=== PATIENT | female | born 1935 | race Caucasian/White ===

== ENCOUNTER 2019-05-15 08:10 | Emergency (ER) | payer MEDICARE ==
[2019-05-15 08:10] VITALS: BP 115/79
[2019-05-15] MEDS ORDERED: SODI104S NS (08:37)
--- NOTE | 2019-05-15 08:45 | PHYS DOC ---
Past History Past Medical History: Cancer (breast), Hypertension Additional Past Surgical Histo: "unsure" Smoking: Non-smoker Alcohol Use: None Drug Use: None Adult General Chief Complaint Chief Complaint: NOSE FOREIGN BODY HPI HPI 83-year-old female presents with sensation of metallic sewing needle to right n are. Reports she had a dream that there was a needle in her nose. Reports history of stepping on needle in past and thinks that that needle might have migrated up to her nose. Reports she thinks that she can feel the needle in her nose and "almost had ahold of it". Reports some mild bleeding after patient tried to get the needle this AM. Review of Systems Review of Systems Constitutional: Denies fever or chills Eyes: Denies redness or eye pain HENT: Reports foreign body sensation to right nare, reports some scant epistaxis after digital trauma Respiratory: Denies cough or shortness of breath Cardiovascular: Denies chest pain or palpitations GI: Denies abdominal pain, nausea, or vomiting : Denies dysuria or hematuria Musculoskeletal: Denies back pain or joint pain Integument: Denies rash or skin lesions Neurologic: Denies headache, focal weakness or sensory changes Complete systems were reviewed and found to be within normal limits, except as documented in this note. Allergies Allergies Allergies Coded Allergies Type Severity Reaction Last Updated Verified No Known Drug Allergies 05/15/19 No Physical Exam Physical Exam Constitutional: Well developed, well nourished, no acute distress, non-toxic appearance HENT: Normocephalic, atraumatic, oropharynx moist, nasal cavity without signs of foreign body, nasal septum on left with small eschar, no active bleeding noted, Eyes: Conjunctiva normal, no discharge Neck: Normal range of motion, no tenderness, supple Cardiovascular: Heart rate normal, regular rhythm Lungs & Thorax: Bilateral breath sounds clear to auscultation, no wheezing Skin: Warm, dry, no erythema, no rash Extremities: No tenderness, ROM intact, no edema Neurologic: Alert and oriented X 3, no focal deficits noted Psychologic: Affect normal, judgement normal EKG EKG [] Radiology/Procedures Radiology/Procedures PROCEDURE: NASAL BONES 3+V NASAL BONES 3+V History: Possible metallic needle to the right nare Comparison: None. Findings: 3 views of nasal bones are submitted. No metallic foreign body is identified in the region of the nose. Linear metallic body in the right maxillary region is probably related to dental hardware. Impression: 1. No metallic foreign body is identified in the region of the nose. Electronically signed by: Shahriar Wilkinson MD (05/15/2019 9:03 AM) [facility] Course & Med Decision Making Course & Med Decision Making Pertinent Imaging studies reviewed. (See chart for details) Patient presents with sensation of foreign body to right nose. No foreign body demonstrated. Patient had thought that possible needle she had stepped on several months ago had migrated up to her nose. X-ray confirmed no metallic foreign body. Some nasal irritation appreciated likely secondary to use of supplemental oxygen via nasal cannula. [place] nasal spray prescription provided. Patient stable for discharge with outpatient follow-up with PCP. Discussed findings and plan with patient and family, who acknowledge understanding and agreement. Dragon Disclaimer Dragon Disclaimer This electronic medical record was generated, in whole or in part, using a voice recognition dictation system. Departure Departure: Impression: Primary Impression: Feared condition not demonstrated Disposition: HOME, SELF-CARE Condition: STABLE Referrals: ARMANI MORTENSEN MD (PCP) Additional Instructions: No foreign body was noted in your nasal cavity on physical exam. Additionally, no metallic object was demonstrated on XR of your nasal bones. Some mild irritation to nasal septum noted likely secondary to using supplemental oxygen. Please use nasal rinse to decreased irritation in additional to humidifier. Scripts Sodium Chloride (OCEAN) 104 Ml [place] 2 SPRAYS NS QID for Nasal irritation, #1 BOTTLE Prov: KIMBERLY MUHAMMAD DO 05/15/19 KIMBERLY MUHAMMAD DO May 15, 2019 08:45
--- NOTE | 2019-05-15 09:06 | RAD ---
NASAL BONES 3+V History: Possible metallic needle to the right nare Comparison: None. Findings: 3 views of nasal bones are submitted. No metallic foreign body is identified in the region of the nose. Linear metallic body in the right maxillary region is probably related to dental hardware. Impression: 1. No metallic foreign body is identified in the region of the nose. Electronically signed by: Shahriar Wilkinson MD (05/15/2019 9:03 AM) [facility]
== END 2019-05-15 09:05 | disposition home or self-care (01) ==
LOC: ER 08:10
DX: R04.0 Epistaxis (principal); Z71.1 Person with feared health complaint in whom no diagnosis is made; I10 Essential (primary) hypertension
CPT/HCPCS: 70160; 99284

== ENCOUNTER 2019-09-06 10:37 | Observation (INO) | payer MEDICARE ==
[~2019-09-06] VITALS: Ht 175.3 cm; Wt 95.6 kg
[~2019-09-06 10:37] MED LIST: SODI104S NS
--- NOTE | 2019-09-06 11:28 | PHYS DOC ---
Past History Past Medical History: Cancer, Hypertension Additional Past Medical Histor: pt is a poor historian Past Surgical History: Cancer Surgery, Knee Replacement Additional Past Surgical Histo: "unsure" Smoking: Non-smoker Alcohol Use: None Drug Use: None Adult General Chief Complaint Chief Complaint: HEAD INJURY/TRAUMA HPI HPI 83-year-old female presents after fall at home. The patient was getting a heavy bag out of her closet when she tripped and fell backwards. The patient remembers falling. She then woke up on the floor wondering where she was. She realized that she was at home and that she had been knocked unconscious. No one was the re, so she's not sure how long she was unconscious. The patient is on Coumadin. She states her INRs been stable. She has a dull headache this time. She also has some tailbone pain. She has a previous fracture of her tailbone from years ago. She has no other complaints at this time. Review of Systems Review of Systems Constitutional: Denies fever or chills [] Eyes: Denies change in visual acuity, redness, or eye pain [] HENT: Denies nasal congestion or sore throat [] Respiratory: Denies cough or shortness of breath [] Cardiovascular: No additional information not addressed in HPI [] GI: Denies abdominal pain, nausea, vomiting, bloody stools or diarrhea [] : Denies dysuria or hematuria [] Musculoskeletal: Low back/pelvic pain[] Integument: Denies rash or skin lesions [] Neurologic: Headache. Denies focal weakness or sensory changes [] Endocrine: Denies polyuria or polydipsia [] All other systems were reviewed and found to be within normal limits, except as documented in this note. Allergies Allergies Allergies Coded Allergies Type Severity Reaction Last Updated Verified No Known Drug Allergies 09/06/19 No Physical Exam Physical Exam Constitutional: Well developed, well nourished, no acute distress, non-toxic appearance. [] HENT: Normocephalic, atraumatic, bilateral external ears normal, oropharynx moist, no oral exudates, nose normal. [] Eyes: PERRLA, EOMI, conjunctiva normal, no discharge. [] Neck: Normal range of motion, no tenderness, supple, no stridor. [] Cardiovascular:Heart rate regular rhythm, no murmur [] Lungs & Thorax: Bilateral breath sounds clear to auscultation [] Abdomen: Bowel sounds normal, soft, no tenderness, no masses, no pulsatile masses. [] Skin: Warm, dry, no erythema, no rash. [] Back: Tenderness over the sacral area[] Extremities: No tenderness, no cyanosis, no clubbing, ROM intact, no edema. [] Neurologic: Alert and oriented X 3, normal motor function, normal sensory function, no focal deficits noted. [] Psychologic: Affect normal, judgement normal, mood normal. [] EKG EKG [] Radiology/Procedures Radiology/Procedures [] Impressions: CT HEAD WO CONTRAST History: Fall. Pain. Comparison: None. Technique: Noncontrast CT imaging was performed of the head. Exposure: One or more of the following individualized dose reduction techniques were utilized for this examination: 1. Automated exposure control 2. Adjustment of the mA and/or kV according to patient size 3. Use of iterative reconstruction technique. Findings: No intracranial hemorrhage. No mass effect. No hydrocephalus. Mild brain parenchymal volume loss. Extensive foci of decreased attenuation within the hemispheric white matter, most often due to chronic microvascular ischemia. Imaged orbits are unremarkable. Imaged paranasal sinuses and mastoid air cells are clear. No acute calvarial fracture. Impression: 1. No acute intracranial abnormality. 2. Extensive sequelae of chronic microvascular ischemia. Electronically signed by: Randell Yancey DO (09/06/2019 11:58 AM) [id number] DICTATED AND SIGNED BY: RANDELL YANCEY DO DATE: 09/06/19 1158 CC: HANS LIN DO; ARMANI MORTENSEN MD ~ PELVIS History: Fall. Pain. Technique: AP view the pelvis. Comparison: October 09, 2007 Findings: Normal AP alignment of the hips. No fracture. Mild pubic symphysis DJD. Lower lumbar spondylosis. Impression: 1. No acute osseous abnormality. Electronically signed by: Randell Yancey DO (09/06/2019 12:11 PM) [id number] DICTATED AND SIGNED BY: RANDELL YANCEY DO DATE: 09/06/19 1211 CC: HANS LIN DO; ARMANI MORTENSEN MD ~ Course & Med Decision Making Course & Med Decision Making Pertinent Labs and Imaging studies reviewed. (See chart for details) Patient's head CT is negative. Her pelvic x-rays are also negative. Since she is on Coumadin, I will admit her for observation. The patient is in agreement with this plan. I spoke with Dr. Bronson and he has accepted the patient for admission. [] Dragon Disclaimer Dragon Disclaimer This electronic medical record was generated, in whole or in part, using a voice recognition dictation system. Departure Departure: Impression: Primary Impression: Fall from slip, trip, or stumble Additional Impressions: Head injury, closed, with brief LOC History of Coumadin therapy Disposition: ADMITTED INPATIENT Admitting Physician: Liu Bronson Condition: STABLE Referrals: ARMANI MORTENSEN MD (PCP) Problem Qualifiers Primary Impression: Fall from slip, trip, or stumble Encounter type: initial encounter Qualified Codes: W01.0XXA - Fall on same level from slipping, tripping and stumbling without subsequent striking against object, initial encounter HANS LIN DO Sep 06, 2019 11:28
--- NOTE | 2019-09-06 12:01 | RAD ---
CT HEAD WO CONTRAST History: Fall. Pain. Comparison: None. Technique: Noncontrast CT imaging was performed of the head. Exposure: One or more of the following individualized dose reduction techniques were utilized for this examination: 1. Automated exposure control 2. Adjustment of the mA and/or kV according to patient size 3. Use of iterative reconstruction technique. Findings: No intracranial hemorrhage. No mass effect. No hydrocephalus. Mild brain parenchymal volume loss. Extensive foci of decreased attenuation within the hemispheric white matter, most often due to chronic microvascular ischemia. Imaged orbits are unremarkable. Imaged paranasal sinuses and mastoid air cells are clear. No acute calvarial fracture. Impression: 1. No acute intracranial abnormality. 2. Extensive sequelae of chronic microvascular ischemia. Electronically signed by: Randell Yancey DO (09/06/2019 11:58 AM) [id number]
[2019-09-06 12:12] LABS: BASO % 1 % (0-3); EOS # 0.3 x10^3/uL (0.0-0.7); EOS % 6 % (0-3); HEMATOCRIT 45.5 % (36.0-47.0); HEMOGLOBIN 14.6 g/dL (12.0-15.5); LYMPH % 23 % (24-48); MEAN CORPUSCULAR HEMOGLOBIN 30 pg (25-35); MEAN CORPUSCULAR HGB CONC 32 g/dL (31-37); MEAN CORPUSCULAR VOLUME 93 fL (79-100); MONO # 0.4 x10^3/uL (0.0-1.1); MONO % 8 % (0-9); NEUT # 2.9 x10^3uL (1.8-7.7); NEUT % 62 % (31-73); PLATELET COUNT 175 x10^3/uL (140-400); RED BLOOD COUNT 4.88 x10^6/uL (3.50-5.40); RED CELL DISTRIBUTION WIDTH 16.7 % (11.5-14.5); WHITE BLOOD COUNT 4.6 x10^3/uL (4.0-11.0)
--- NOTE | 2019-09-06 12:14 | RAD ---
PELVIS History: Fall. Pain. Technique: AP view the pelvis. Comparison: October 09, 2007 Findings: Normal AP alignment of the hips. No fracture. Mild pubic symphysis DJD. Lower lumbar spondylosis. Impression: 1. No acute osseous abnormality. Electronically signed by: Randell Yancey DO (09/06/2019 12:11 PM) [id number]
[2019-09-06 12:29] LABS: CALCIUM 9.7 mg/dL (8.5-10.1); CREATININE 1.1 mg/dL (0.6-1.0); GFR 47.4; POTASSIUM 4.1 mmol/L (3.5-5.1)
[2019-09-06 12:33] LABS: ALBUMIN 3.2 g/dL (3.4-5.0); ALBUMIN/GLOBULIN RATIO 0.9 (1.0-1.7); TOTAL BILIRUBIN 0.5 mg/dL (0.2-1.0); TOTAL PROTEIN 6.6 g/dL (6.4-8.2)
[2019-09-06 12:51] LABS: BILIRUBIN,URINE NEG (NEG); CLARITY,URINE CLEAR; COLOR,URINE YELLOW; GLUCOSE,URINE NEG (NEG)
[2019-09-06 12:52] LABS: BACTERIA,URINE 0 /HPF (0-FEW); NITRITE,URINE NEG (NEG); RBC,URINE 0 /HPF (0-2); SQUAMOUS EPITHELIAL CELL,UR FEW /LPF; UROBILINOGEN,URINE 0.2 mg/dL (0.2 mg/dL); WBC,URINE 0 /HPF (0-4)
[2019-09-06 15:05] VITALS: BP 105/70
[2019-09-06] MEDS ORDERED: WARF-31 PO (15:48)
[2019-09-06] MEDS ORDERED: ALLO100T PO (15:48)
[2019-09-06] MEDS ORDERED: SPIR25TA5 PO (15:48)
[2019-09-06] MEDS ORDERED: FURO40TA4 PO (15:48)
[2019-09-06] MEDS ORDERED: METO25TA4 PO (15:48)
[2019-09-06] MEDS ORDERED: WARF1TAB69 PO (15:48)
[2019-09-06] MEDS ORDERED: NITR0.4T22 SL (15:48)
[2019-09-06] MEDS ORDERED: SILV50CR31 TP (15:48)
[2019-09-06] MEDS ORDERED: COLC0.6C3 PO (15:48)
[2019-09-06] MEDS ORDERED: GABA600T7 PO ×2 (15:48)
[2019-09-06] MEDS ORDERED: GABA-586 PO (15:48)
[2019-09-06] MEDS ORDERED: silver sulfADIAZINE 1% CREAM 50GM JAR. TP PRN (17:30)
[2019-09-06] MEDS ORDERED: NITROGLYCERIN SUBLINGUAL 0.4 MG BOTTLE OF 25. SL SCH (17:30)
[2019-09-06] MEDS ORDERED: NITROGLYCERIN SUBLINGUAL 0.4 MG BOTTLE OF 25. SL PRN (17:45)
--- NOTE | 2019-09-06 18:32 | HP ---
ADMIT DATE: 09/06/2019 HISTORY OF PRESENT ILLNESS: The patient is an 83-year-old female patient who came to the Emergency Room after she fell at home. She apparently was getting a heavy bag out of her closet when she tripped and fell backward. The patient remembers falling. She then woke up on the floor wondering where she was. She realized that she was at home and that she had been knocked unconscious. No one was there, so she is not sure how long she was unconscious. The patient is on Coumadin. She states her INR has been stable. She has a dull headache at this time. She also has some tailbone pain. She has a previous fracture of her tailbone years ago. She also complained of pain in her left shoulder. She was extensively evaluated in the Emergency Room and her lab works were mostly unremarkable. Her prothrombin time was 29.2, INR of 2.8 and aPTT of 36 and she had had a CT scan of the head, which showed no acute intracranial abnormality, extensive sequelae of chronic microvascular ischemia. She had had a CT scan of her pelvis, which basically showed no acute osseous abnormality. The patient was admitted for overnight observation. PAST MEDICAL HISTORY: Significant for hypertension, atrial fibrillation that seems to be chronic diastolic congestive heart failure. She has also chronic hypoxic respiratory failure and some form of what seems to be interstitial lung disease and gout. PAST SURGICAL HISTORY: Significant for total abdominal hysterectomy, bilateral total knee arthroplasty and appendectomy. ALLERGIES: She has no known drug allergies. MEDICATIONS: She is currently on following: She is on Coumadin total of 2-3.5 mg at bedtime, nitroglycerin 0.4 mg sublingually every 5 minutes x 3, metoprolol tartrate 25 mg twice a day, spironolactone 25 mg once a day, gabapentin 600 mg daily, gabapentin 300 mg at noon, gabapentin 1200 mg at bedtime. She is on furosemide 40 mg twice a day, sodium chloride Wirt spray one spray to each nostril 4 times a day. She is also on Silver sulfadiazine 50 grams cream applied topically as needed, and allopurinol 100 mg twice a day and colchicine 0.5 mg p.o. daily. FAMILY HISTORY: Noncontributory. SOCIAL HISTORY: She is and lives with her . She has 2 sons and 1 daughter, all adopted. She never smoked, does not drink alcohol or use recreational drugs. 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 REVIEW OF SYSTEMS: As per history of present illness. PHYSICAL EXAMINATION GENERAL: When I examined her this afternoon, she looked well and was clearly in no apparent respiratory distress. No pallor, jaundice, cyanosis or thyromegaly. No jugular venous distention or limb edema. VITAL SIGNS: Her heart rate was 107, blood pressure was 105/70, temperature 96.9, respiratory rate 20, and oxygen saturation was 92% on 3 liters of oxygen. HEAD, EYES, EARS, NOSE AND THROAT: Showed normocephalic, atraumatic. NECK: Supple. HEART: Showed normal first and second heart sounds. No gallop, rub or murmur. CHEST: Showed central trachea, equal bilateral chest expansion, good air entry, vesicular sounds. No crepitation or rhonchi. ABDOMEN: Distended, soft, nontender. NEUROLOGIC: She is awake, alert and oriented x 3, slightly deaf for hard of hearing, but otherwise all her cranial nerves intact. There is no motor or sensory deficit. LABORATORY DATA: On arrival to the Emergency Room, she had lab work showed a white cell count 4600, hemoglobin 14.6, hematocrit 45, MCV 93, and platelet count of 175,000. Her chemistry showed a serum sodium of 145, potassium 4.1, chloride 105, bicarbonate 27, anion gap of 3, BUN 28, creatinine 1.1, estimated GFR was 47 mL per minute. Her glucose was 87, calcium was 9.7. Total bilirubin 0.5. AST, ALT, alkaline phosphatase were normal. Total protein 6.6, albumin 3.7. Her prothrombin time was 29.2, INR of 2.8, aPTT was 36. Urinalysis was essentially unremarkable. Her CT scan of the head showed no acute intracranial abnormality, extensive sequelae of chronic microvascular ischemia and pelvis x-ray showed no acute osseous abnormality. PLAN: Obviously to resume all her medication except her Coumadin. We will observe her overnight and she remained stable and she can be discharged home. LENNIE GALINDO MD DR: MARCELINO/sandie JOB#: [id number] / [id number]
[2019-09-06] MEDS: ACETAMINOPHEN 325 MG TABLET PO PRN ×2 (18:53→21:32)
[2019-09-06 19:39] VITALS: BP 105/71
[2019-09-06] MEDS ORDERED: GABAPENTIN 400 MG CAPSULE. PO SCH (21:00)
[2019-09-06] MEDS: SODIUM CHLORIDE 0.65% NASAL SPRAY 45ML BOTTLE. NS SCH (21:00)
[2019-09-06] MEDS: FUROSEMIDE 40 MG TABLET PO SCH (21:00)
[2019-09-06] MEDS: METOPROLOL TART IMMED RELEASE 25 MG TABLET PO SCH (21:00)
[2019-09-06] MEDS: ALLOPURINOL 100 MG TABLET. PO SCH (21:32)
[2019-09-06 22:54] VITALS: BP_SYST 92; BP_SYST 98; BP_DIAS 53; BP_DIAS 63
[2019-09-06 22:55] VITALS: BP 100/62
[2019-09-07 06:05] VITALS: BP 95/64
[2019-09-07 07:10] LABS: HEMATOCRIT 43.8 % (36.0-47.0); HEMOGLOBIN 13.8 g/dL (12.0-15.5); RED BLOOD COUNT 4.67 x10^6/uL (3.50-5.40); RED CELL DISTRIBUTION WIDTH 16.6 % (11.5-14.5); WHITE BLOOD COUNT 4.3 x10^3/uL (4.0-11.0)
[2019-09-07 07:25] LABS: CALCIUM 9.7 mg/dL (8.5-10.1); CREATININE 1.2 mg/dL (0.6-1.0); GFR 42.9; TOTAL BILIRUBIN 0.6 mg/dL (0.2-1.0); TOTAL PROTEIN 5.9 g/dL (6.4-8.2)
[2019-09-07] MEDS: ALLOPURINOL 100 MG TABLET. PO SCH (08:19)
[2019-09-07] MEDS: SODIUM CHLORIDE 0.65% NASAL SPRAY 45ML BOTTLE. NS SCH ×2 (08:20→12:04)
[2019-09-07] MEDS: METOPROLOL TART IMMED RELEASE 25 MG TABLET PO SCH (08:21)
[2019-09-07] MEDS: FUROSEMIDE 40 MG TABLET PO SCH (08:21)
[2019-09-07] MEDS ORDERED: GABAPENTIN 300 MG CAPSULE. PO SCH ×2 (09:00→12:00)
[2019-09-07] MEDS ORDERED: COLCHICINE 0.6 MG TABLET PO SCH (09:00)
[2019-09-07] MEDS ORDERED: SPIRONOLACTONE 25 MG TABLET PO SCH (09:00)
[2019-09-07 11:10] VITALS: BP 108/77
--- NOTE | 2019-09-07 15:02 | DS ---
DATE OF DISCHARGE: 09/07/2019 HOSPITAL COURSE: The patient was admitted yesterday for observation as she had fallen on her back and hit her head and neck and she was on Coumadin with supratherapeutic INR, so she was admitted overnight and she has remained hemodynamically stable. No any obvious neurological deficit. No headache. No blurring of vision. She has been up and about without difficulty and as she remained hemodynamically stable with no obvious neurological deficit, a decision was made to discharge her home to follow with her primary care physician. Her blood pressure was noted to be somewhat low and she is on multiple medications that might be causing this hypotension and might be the reason for her fall including metoprolol, furosemide and therefore we will advise her to follow with her primary care physician with a plan to perhaps cut down on her diuretics or beta blockers. PHYSICAL EXAMINATION: GENERAL: When I saw her this afternoon, she looked well and was clearly in no apparent respiratory distress. No pallor, jaundice, cyanosis or thyromegaly. No jugular venous distention. No lower limb edema. VITAL SIGNS: Her heart rate was 68, blood pressure was 108/77, temperature was 98.2, respiratory rate 20 and oxygen saturation was 98% on 3 liters of oxygen. HEAD, EYES, EARS, NOSE AND THROAT: Showed normocephalic, atraumatic. NECK: Supple. HEART: Showed normal first and second heart sounds. No gallop, rub or murmur. CHEST: Clear to auscultation. No crepitation or rhonchi. ABDOMEN: Distended, soft, nontender. NEUROLOGIC: She is awake, alert, responding appropriately. All cranial nerves intact. EXTREMITIES: She moves extremities without difficulty. She ambulates without assistance or assistive devices. LABORATORY DATA: Showed a white cell count 4300, hemoglobin 13.8, hematocrit 44, MCV 94 and platelet count 250,000. Her chemistry showed serum sodium 144, potassium 4, chloride 105, bicarbonate 37, anion gap of 2, BUN 27, creatinine 1.2, estimated GFR was 43 mL per minute, glucose was 87, calcium was 9.7. Total bilirubin, AST, ALT, alkaline phosphatase were normal. Total protein was 5.9, albumin 3. Her prothrombin time was 30.8, INR of 3. Urinalysis essentially unremarkable. DISCHARGE MEDICATIONS: She was discharged home to continue on her current medications including allopurinol 100 mg twice a day, colchicine 0.6 mg daily, furosemide 40 mg twice a day, gabapentin 600 mg daily, gabapentin 300 mg at noon and gabapentin 1200 mg at bedtime, metoprolol tartrate 25 mg twice a day, nitroglycerin 0.4 mg sublingually every 5 minutes x 3, silver sulfadiazine cream applied topically as needed, sodium chloride, [place] spray 2 sprays to each nostril 4 times a day, spironolactone 25 mg once a day and Coumadin 3.5 mg daily. FINAL DISCHARGE DIAGNOSES: Fall with no obvious injury. CT scan showed no evidence of intracranial hemorrhage. Other problems include hypertension, atrial fibrillation, chronic diastolic congestive heart failure, chronic hypoxic respiratory failure and chronic obstructive pulmonary disease as well as gout. LENNIE GALINDO MD DR: MARCELINO/sandie JOB#: [id number] / [id number]
== END 2019-09-07 14:11 | disposition home or self-care (01) ==
LOC: ER 10:37 → 1 SOUTH 13:25
PROVIDERS: ADMIT Internal Medicine; ATTEND Internal Medicine
DX: S06.9X9A Unspecified intracranial injury with loss of consciousness of unspecified duration, initial encounter (principal); I11.0 Hypertensive heart disease with heart failure; I50.32 Chronic diastolic (congestive) heart failure; I48.91 Unspecified atrial fibrillation; J44.9 Chronic obstructive pulmonary disease, unspecified; J96.11 Chronic respiratory failure with hypoxia; M10.9 Gout, unspecified; Z79.01 Long term (current) use of anticoagulants; Z90.710 Acquired absence of both cervix and uterus; Z96.653 Presence of artificial knee joint, bilateral; W01.0XXA Fall on same level from slipping, tripping and stumbling without subsequent striking against object, initial encounter; Y93.89 Activity, other specified; Y92.009 Unspecified place in unspecified non-institutional (private) residence as the place of occurrence of the external cause
CPT/HCPCS: 36415; 70450; 72170; 80053; 81001; 85025; 85027; 85610; 85730; 97116; 97162; 97166; 99284; G0378; G0379

== ENCOUNTER → 2020-07-25 | Outpatient (CLI) | payer MEDICARE ==
[~2020-07-25] MED LIST changes: +ALLO100T PO; +COLC0.6C3 PO; +FURO40TA4 PO; +GABA-586 PO; +GABA600T7 PO; +METO25TA4 PO; +NITR0.4T22 SL; +SILV50CR31 TP; +SPIR25TA5 PO; +WARF-31 PO; +WARF1TAB69 PO
--- NOTE | 2020-07-25 14:54 | RAD ---
PQRS Compliance Statement: One or more of the following individualized dose reduction techniques were utilized for this examinat ion: 1. Automated exposure control 2. Adjustment of the mA and/or kV according to patient size 3. Use of iterative reconstruction technique CT CHEST HIGH RESOLUTION 07/25/2020 10:47 AM Indication: Pulmonary neuroendocrine COMPARISON: None available. TECHNIQUE: Multiple axial CT images of the chest were obtained without intravenous contrast utilizing high-resolution technique. Coronal and sagittal reformats are provided. FINDINGS: There is an 8 mm solid noncalcified pulmonary nodule in the left lower lobe laterally (series 2, imag e 32). There is a 4 mm solid noncalcified pulmonary nodule mentioned left lower lobe (series 2, image 33). There is a solid noncalcified pulmonary nodule in the right lower lobe 10 mm (series 6, image 3 9). There is a 4 mm solid noncalcified pulmonary nodule in the right middle lobe (series 2, image 43) . Mosaic attenuation on expiratory phase images suggest areas of air trapping. Bronchial wall thicken ing is compatible with nonspecific bronchitis. There is no honeycombing. No traction bronchiectasis. No groundglass changes are identified. Mild centrilobular pulmonary emphysema. No pleural effusions, pulmonary vascular congestion or pneumothorax. Thyroid gland is normal in appearance. There is enlarg ement of the main pulmonary artery measuring 4.7 cm. Ascending thoracic aorta measures 3.9 cm. There is mild calcified atheromatous plaque. Heart size is borderline enlarged. Coronary artery vascular ca lcifications are present involving the left anterior descending and left main artery. Right infrahila r soft tissue mass may represent lymphadenopathy versus parenchymal nodule measuring 2.1 x 1.4 cm. No suspicious abnormality in the upper abdomen. No suspicious osseous abnormality is identified. IMPRESSION: 1. Solid noncalcified pulmonary nodules measure up to 10 mm in the right lower lobe. Consideration ma y be given for primary lung malignancy versus metastatic disease or granulomatous disease. Further ev aluation with PET/CT, tissue sampling or 3 month follow-up chest CT is recommended. 2. Right infrahilar soft tissue mass measures 2.1 x 1.4 cm and may represent lymphadenopathy versus p arenchymal pulmonary nodule. Attention on PET is recommended. 3. Enlargement of the main pulmonary artery could reflect pulmonary artery hypertension. 4. No evidence for interstitial lung disease. There is air trapping as may be seen with COPD. Mild br onchial wall thickening suggestive of bronchitis. Electronically signed by: Claudia Ivory MD (07/25/2020 2:51 PM) [id number]
== END ==
LOC: CT 10:21
PROVIDERS: ATTEND Internal Medicine
DX: R91.8 Other nonspecific abnormal finding of lung field (principal); J98.4 Other disorders of lung; R06.02 Shortness of breath
CPT/HCPCS: 71250